=== PATIENT | male | born 1985 | race Caucasian/White ===

== ENCOUNTER 2020-10-01 16:21 | Emergency (ER) | payer OTHER ==
[2020-10-01] MEDS ORDERED: Acetaminophen/oxyCODONE 325-5 MG Tab PO STA (16:58)
[2020-10-01] MEDS ORDERED: Bacitracin Oint 1 GM U/D Packet TOP ONE (16:59)
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
[2020-10-01] MEDS ORDERED: Lidocaine 2% 20 ML MDV SUBCUT ONE (17:22)
[2020-10-01] MEDS ORDERED: Lidocaine 2% 20 ML MDV INJECT ONE (17:28)
--- NOTE | 2020-10-03 10:10 | CR ---
Toes Great Toe Rt T5 CLINICAL HISTORY: Trauma FINDINGS: There is minimal crescentic linear lucency in the tuft of the first distal phalanx. IMPRESSION: Tuft fracture first distal phalanx
== END 2020-10-01 18:15 | disposition home or self-care (01) ==
LOC: JP.ED 16:21
DX: S92.421D Displaced fracture of distal phalanx of right great toe, subsequent encounter for fracture with routine healing (principal); S91.201A Unspecified open wound of right great toe with damage to nail, initial encounter; V86.56XA Driver of dirt bike or motor/cross bike injured in nontraffic accident, initial encounter; Y93.I9 Activity, other involving external motion
CPT/HCPCS: 64450; 73660; 99284; A9270